=== PATIENT | male | born 1980 | race Caucasian/White ===

== ENCOUNTER 2018-10-23 10:42 | Day surgery (SDC) | payer MEDICAID ==
[~2018-10-23 10:42] MED LIST: CLIN300C85 PO; WARF-55 PO
[2018-10-23] MEDS ORDERED: LIDOcaine 2% 5ml jelly ONE (11:31)
--- NOTE | 2018-10-23 12:30 | NUR ---
Patient ambulated independently from [facility] and was admitted to outpatient wound care for physician visit. Dressings removed, wound cleansed. New Patient assessment completed with review of patient's medical history and current medications. Ema0-Dr. Valenzuela at bedside accompanied by RN. Wound assessed, time-out performed by MD/RN. Wound debrided as detailed in the physician progress/procedure note. Plan of care discussed with patient. Dressings placed per MD orders. Patient instructed on the signs and symptoms of infection and to call the Wound Center if any occur or to go to the ED if we are closed: Increased pain in the wound Increase in drainage from the wound Redness in the skin surrounding the wound Bleeding from the wound Temperature of 101F or greater Patient instructed that the weight of their body puts a large amount of pressure on their wounds. This pressure keeps the new tissue from growing and inhibits new blood vessels from forming. Explained that, if they continue to bear weight on a body part that has a wound, the time it takes to heal the wound increases, the wound may get worse, or the wound may not heal at all. Patient verbalized understanding of all discharge instructions and plan of care. Patient ambulated independently out to [facility] in stable condition with no signs or symptoms of distress at time of discharge. Addendum: 10/23/18 at 1500 by Ne Anand RN Patient arrived and departed via motorized wheelchair; patient did not ambulate.
== END 2018-10-23 12:26 | disposition home or self-care (01) ==
LOC: WOUND CARE 10:42
PROVIDERS: ATTEND Surgery
DX: T87.89 Other complications of amputation stump (principal); L97.512 Non-pressure chronic ulcer of other part of right foot with fat layer exposed; L97.522 Non-pressure chronic ulcer of other part of left foot with fat layer exposed; I11.0 Hypertensive heart disease with heart failure; I50.9 Heart failure, unspecified; I96 Gangrene, not elsewhere classified; F12.10 Cannabis abuse, uncomplicated; F17.210 Nicotine dependence, cigarettes, uncomplicated; F15.10 Other stimulant abuse, uncomplicated; Z79.01 Long term (current) use of anticoagulants; Z86.718 Personal history of other venous thrombosis and embolism; Y83.5 Amputation of limb(s) as the cause of abnormal reaction of the patient, or of later complication, without mention of misadventure at the time of the procedure
CPT/HCPCS: 97597; A6209; A6021; A6206; A6446

== ENCOUNTER 2018-12-15 22:34 | Emergency (ER) | payer MEDICAID ==
[~2018-12-15] VITALS: Ht 185.4 cm; Wt 260.0 kg
[~2018-12-15 22:34] MED LIST changes: -CLIN300C85 PO
[2018-12-15 22:38] VITALS: BP 203/138
--- NOTE | 2018-12-16 00:41 | NUR ---
No response from lobby after 3 attempts to room. Call placed to phone number on file. Message left expressing concern for Pt's well being, and to encourage him to return for eval. Dr Nolasco informed.
== END 2018-12-16 00:45 | disposition left against medical advice (07) ==
LOC: ER 22:34
DX: M79.605 Pain in left leg (principal); Z53.21 Procedure and treatment not carried out due to patient leaving prior to being seen by health care provider

== ENCOUNTER 2019-04-02 21:22 | Emergency (ER) | payer MEDICAID ==
[~2019-04-02] VITALS: Ht 185.4 cm; Wt 113.6 kg
[2019-04-02] MEDS ORDERED: hydrALAZINE 20mg/ml inj. IV ONE (21:30)
[2019-04-02] MEDS ORDERED: LABE100T5 PO (21:51)
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
[2019-04-02 22:30] VITALS: BP 219/137
== END 2019-04-02 22:32 | disposition home or self-care (01) ==
LOC: ER 21:23
DX: I10 Essential (primary) hypertension (principal); F12.90 Cannabis use, unspecified, uncomplicated; F15.90 Other stimulant use, unspecified, uncomplicated; Z91.14 Patient's other noncompliance with medication regimen; Z86.718 Personal history of other venous thrombosis and embolism; Z86.14 Personal history of Methicillin resistant Staphylococcus aureus infection; Z56.0 Unemployment, unspecified; Z79.01 Long term (current) use of anticoagulants; Z79.899 Other long term (current) drug therapy; Z89.612 Acquired absence of left leg above knee; Z89.611 Acquired absence of right leg above knee
CPT/HCPCS: 99284; J0360

== ENCOUNTER 2020-04-06 20:53 | Emergency (ER) | payer MEDICAID ==
[~2020-04-06] VITALS: Ht 185.4 cm; Wt 113.6 kg
[~2020-04-06 20:53] MED LIST changes: +LABE100T5 PO
--- NOTE | 2020-04-06 21:04 | NUR ---
PT REFUSING ANY INTERVENTIONS AT THIS TIME AND AGREES TO STAY TO "SEE A DR REALLY QUICK BUT I WOULD PREFER TO GO HOME."
[2020-04-06 21:22] VITALS: BP 189/129
== END 2020-04-06 21:24 | disposition left against medical advice (07) ==
LOC: ER 20:54
DX: I10 Essential (primary) hypertension (principal); F12.90 Cannabis use, unspecified, uncomplicated; F15.90 Other stimulant use, unspecified, uncomplicated; Z56.0 Unemployment, unspecified; Z86.718 Personal history of other venous thrombosis and embolism; Z86.14 Personal history of Methicillin resistant Staphylococcus aureus infection; Z79.01 Long term (current) use of anticoagulants
CPT/HCPCS: 99283

== ENCOUNTER 2020-09-27 19:37 | Emergency (ER) | payer MEDICAID ==
[~2020-09-27] VITALS: Ht 185.4 cm; Wt 113.6 kg
[2020-09-27 19:42] VITALS: BP_DIAS 100
[2020-09-27] MEDS ORDERED: lisinopril 10 MG tablet PO ONE (19:50)
[2020-09-27] MEDS ORDERED: cloNIDine 0.1 mg tablet PO ONE (19:55)
[2020-09-27 20:14] VITALS: BP_SYST 191
== END 2020-09-27 20:17 ==
LOC: ER 19:37
DX: I10 Essential (primary) hypertension (principal); F15.10 Other stimulant abuse, uncomplicated; F12.90 Cannabis use, unspecified, uncomplicated; Z72.89 Other problems related to lifestyle; Z86.14 Personal history of Methicillin resistant Staphylococcus aureus infection; Z79.01 Long term (current) use of anticoagulants; Z79.899 Other long term (current) drug therapy
CPT/HCPCS: 99283

== ENCOUNTER 2021-02-18 13:51 | Emergency (ER) | payer MEDICAID ==
[~2021-02-18] VITALS: Ht 185.4 cm; Wt 100.0 kg
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
--- NOTE | 2021-02-18 16:40 | NUR ---
Monica Johnson NP aware of BP
[2021-02-18] MEDS ORDERED: cloNIDine 0.1 mg tablet PO ONE (16:45)
[2021-02-18] MEDS ORDERED: oxyCODONE/APAP 5-325mg tablet PO ONE (18:15)
[2021-02-18 18:31] VITALS: BP 219/145
== END 2021-02-18 18:39 | disposition home or self-care (01) ==
LOC: ER 13:51
DX: S02.82XA Fracture of other specified skull and facial bones, left side, initial encounter for closed fracture (principal); S09.93XA Unspecified injury of face, initial encounter; H05.232 Hemorrhage of left orbit; F15.10 Other stimulant abuse, uncomplicated; F12.10 Cannabis abuse, uncomplicated; I10 Essential (primary) hypertension; Y04.0XXA Assault by unarmed brawl or fight, initial encounter; Y93.89 Activity, other specified; Y92.89 Other specified places as the place of occurrence of the external cause; Y99.8 Other external cause status; Z56.0 Unemployment, unspecified; Z79.899 Other long term (current) drug therapy
CPT/HCPCS: 70450; 70486; 99285

== ENCOUNTER 2021-03-09 10:29 | Emergency (ER) | payer MEDICAID ==
[~2021-03-09] VITALS: Ht 185.4 cm; Wt 90.9 kg
[2021-03-09 13:06] VITALS: BP 201/141
== END 2021-03-09 14:43 ==
LOC: ER 10:30
DX: F12.90 Cannabis use, unspecified, uncomplicated (principal); F15.90 Other stimulant use, unspecified, uncomplicated; I10 Essential (primary) hypertension; Z86.14 Personal history of Methicillin resistant Staphylococcus aureus infection; Z79.01 Long term (current) use of anticoagulants; Z79.899 Other long term (current) drug therapy; Z56.0 Unemployment, unspecified; Z72.89 Other problems related to lifestyle; Z86.718 Personal history of other venous thrombosis and embolism
CPT/HCPCS: 99283

== ENCOUNTER 2021-07-09 18:43 | Inpatient (IN) | payer MEDICAID ==
[~2021-07-09] VITALS: Ht 182.9 cm; Wt 100.0 kg
[2021-07-09] MEDS ORDERED: DEXAMETHASONE 6 MG TABLET PO STA (19:10)
[2021-07-09] MEDS ORDERED: iohexol 350MG/ML 100ml bottle IV ONE (19:48)
[2021-07-09 19:49] LABS: BASOPHILS % (AUTO) 0.4 % (0-1); EOSINOPHILS % (AUTO) 0 % (0-6); HEMATOCRIT 53.3 % (42.0-52.0); LYMPHOCYTES # (AUTO) 0.8 X10'3 (1.1-4.8); LYMPHOCYTES % (AUTO) 6.8 % (21-51); MEAN CORPUSCULAR HEMOGLOBIN 33.5 PG (27.0-31.0); MEAN CORPUSCULAR HGB CONC 34.3 g/dL (33.0-36.5); MEAN CORPUSCULAR VOLUME 97.8 FL (78-98); MEAN PLATELET VOLUME 8.6 FL (7.4-10.4); MONOCYTES # (AUTO) 1.6 X10'3 (0-0.9); MONOCYTES % (AUTO) 13.3 % (2-12); NEUTROPHILS # (AUTO) 9.6 X10'3 (1.8-7.7); NEUTROPHILS % (AUTO) 79.5 % (42-75); PLATELET COUNT 125 X10'3 (140-440); RED BLOOD COUNT 5.45 X10'6 (4.70-6.10); RED CELL DISTRIBUTION WIDTH 13.5 % (11.5-14.5); WHITE BLOOD COUNT 12.1 X10'3 (4.5-11.0)
[2021-07-09 19:54] LABS: HEMOGLOBIN 18.3 g/dl (14.0-17.9)
[2021-07-09 20:00] LABS: D-DIMER 2.09 MG/L FEU (0-0.50)
[2021-07-09 20:07] LABS: ALANINE AMINOTRANSFERASE 21 U/L (12-78); ALBUMIN 3.1 G/DL (3.4-5.0); ALBUMIN/GLOBULIN RATIO 0.8 (1.1-1.5); ALKALINE PHOSPHATASE 149 IU/L (46-116); ANION GAP 14 (8-16); ASPARTATE AMINO TRANSFERASE 38 U/L (10-37); BILIRUBIN,TOTAL 1.2 MG/DL (0.1-1.0); BLOOD UREA NITROGEN 17 MG/DL (7-18); BUN/CREATININE RATIO 13.2 (5.4-32.0); CHLORIDE 97 MMOL/L (99-107); CREATININE 1.29 MG/DL (0.60-1.10); GLUCOSE 110 MG/DL (70-104); POTASSIUM 3.6 MMOL/L (3.5-5.1); SODIUM 134 MMOL/L (135-145); TOTAL PROTEIN 7.2 G/DL (6.4-8.2); eGFR 62 ML/MIN
[2021-07-09 20:10] LABS: URINE AMPHETAMINE SCREEN POSITIVE (Neg); URINE BARBITUATE SCREEN NEGATIVE (Neg); URINE BENZODIAZEPINES SCREEN NEGATIVE (Neg); URINE CANNABINOID SCREEN POSITIVE (Neg); URINE COCAINE SCREEN NEGATIVE (Neg); URINE METHADONE SCREEN NEGATIVE (Neg); URINE OPIATE SCREEN POSITIVE (Neg); URINE PHENCYCLIDINE SCREEN NEGATIVE (Neg)
[2021-07-09 20:13] LABS: C-REACTIVE PROTEIN 8.76 MG/DL (0.0-0.5); LACTATE DEHYDROGENASE 328 U/L (85-227)
[2021-07-09] MEDS ORDERED: furosemide 10 MG/1 ML 10ml inj IV ONE (20:50)
[2021-07-09] MEDS ORDERED: CefTRIAXone/D5W-Rocephin 1gm 50 ML IV ONE (21:40)
[2021-07-09] MEDS ORDERED: azithromycin/NS 500mg/250ml 250 ML IV ONE (21:40)
--- NOTE | 2021-07-09 23:21 | NUR ---
Patient fitted with a condom catheter and drainage bag.
[2021-07-10] MEDS ORDERED: ondansetron/PF 4mg/2ml inj IV PRN (00:20)
[2021-07-10] MEDS ORDERED: mag hydrox/Alum hydrox/simeth 30ml oral suspension PO PRN (00:20)
[2021-07-10] MEDS ORDERED: acetaminophen 650mg rectal suppository RC PRN (00:20)
[2021-07-10] MEDS ORDERED: bisacodyl 10mg suppository rectal RC PRN (00:20)
[2021-07-10] MEDS: dextrose 5%-1/2 normal saline 1,000 ML IV SCH ×2 (00:20→10:34)
[2021-07-10] MEDS ORDERED: diphenhydrAMINE 50 mg/ml inj IV PRN (00:20)
[2021-07-10] MEDS ORDERED: magnesium hydroxide 30ml (MOM) UD suspension PO PRN (00:20)
[2021-07-10] MEDS ORDERED: HYDROcodone/acetaminophen 5mg/325mg tablet PO PRN (00:20)
[2021-07-10] MEDS ORDERED: morphine 2 MG/ML inj. syringe IV PRN ×2 (00:20)
[2021-07-10] MEDS ORDERED: diphenhydrAMINE 25mg capsule PO PRN (00:20)
[2021-07-10] MEDS ORDERED: HYDROcodone/acetaminophen 10/325mg tab PO PRN (00:20)
[2021-07-10] MEDS ORDERED: acetaminophen 325mg tablet PO PRN (00:20)
[2021-07-10] MEDS ORDERED: ondansetron 4mg rapidly disintigrating tab PO PRN (00:20)
[2021-07-10] MEDS ORDERED: ALBUTEROL INHALER 1 PUFF/90 MCG INHALER IH PRN (00:25)
[2021-07-10] MEDS ORDERED: hydrALAZINE 20mg/ml inj. IV PRN (00:25)
[2021-07-10 01:05] LABS: CLARITY,URINE CLEAR (Clear); COLOR,URINE DARK YELLOW (Yellow); GLUCOSE, URINE NEGATIVE (Neg); KETONES,URINE NEGATIVE (Neg); LEUKOCYTE ESTERASE ,URINE NEGATIVE (Neg); NITRITES, URINE NEGATIVE (Neg); OCCULT BLOOD,URINE MODERATE (Neg); PROTEIN,URINE >=300 mg/dl (Neg); UA COLLECTION TYPE NON-SPECIFIED; UROBILINOGEN,URINE >=8.0 E.U/dL (0.2-1.0)
[2021-07-10 01:19] LABS: BACTERIA,URINE FEW /HPF (Neg); SQUAMOUS EPITHELIAL CELL,UR FEW /LPF (FEW); WBC,URINE 0-4 /HPF (0-4)
[2021-07-10 01:20] LABS: RBC,URINE 0-2 /HPF (0-2)
[2021-07-10 01:21] LABS: HYALINE CASTS 0-3 /LPF (NEGATIVE)
--- NOTE | 2021-07-10 02:40 | NUR ---
Patient O2 sat consistently below 85% on 6L NC. Patient placed on non-rebreather at 10 L. O2 sat at 91%.
[2021-07-10] MEDS ORDERED: furosemide 10 MG/1 ML 10ml inj IV ONE (07:10)
[2021-07-10] MEDS ORDERED: pantoprazole 40mg Tablet.DR PO SCH (07:30)
[2021-07-10] MEDS ORDERED: heparin, porcine 5000 units/ml vial SQ SCH (08:00)
[2021-07-10] MEDS: docusate sod 100mg capsule PO SCH ×2 (08:00→20:09)
[2021-07-10] MEDS: LORazepam 2 mg/ml vial IV SCH ×3 (08:16→23:54)
[2021-07-10] MEDS: pantoprazole 40mg Tablet.DR PO SCH (08:16)
[2021-07-10] MEDS: CefTRIAXone/D5W-Rocephin 1gm 50 ML IV SCH (08:16)
[2021-07-10] MEDS: dexamethasone 4mg/ml inj IV SCH ×2 (08:16→20:10)
[2021-07-10] MEDS: losartan 50mg tablet PO SCH (08:17)
[2021-07-10] MEDS: aspirin 81mg, enteric-coated 1 TAB TABLET.DR PO SCH (08:17)
[2021-07-10] MEDS: atorvastatin 20mg tablet PO SCH (08:17)
[2021-07-10] MEDS: azithromycin/NS 500mg/250ml 250 ML IV SCH (08:17)
[2021-07-10] MEDS: nitroGLYCERIN 0.1mg/hour patch TD SCH (09:30)
[2021-07-10] MEDS ORDERED: NO HOME MEDS PO (12:18)
[2021-07-10 12:49] LABS: PARTIAL THROMBOPLASTIN TIME 34 SECONDS (22-32)
[2021-07-10 12:50] LABS: HEMOGLOBIN A1C 6.2 % (4.5-6.2)
--- NOTE | 2021-07-10 13:28 | NUR ---
Dr. Carmen paged re; pt o2 desaturation
--- NOTE | 2021-07-10 13:37 | NUR ---
Dr. Coyle at bedside
[2021-07-10 13:40] LABS: CREATINE KINASE 262 U/L (39-308); LIPASE < 50 U/L (73-393); MAGNESIUM 1.8 MG/DL (1.5-2.4); PHOSPHORUS 2.7 MG/DL (2.3-4.5)
--- NOTE | 2021-07-10 15:20 | NUR ---
Dr. Coyle notified of positive blood CX
[2021-07-10] MEDS ORDERED: REMDESIVIR INJ 100 MG in normal saline 100ml IV soln 80 ML IV SCH (15:50)
[2021-07-10] MEDS ORDERED: vancomycin/NS 1 GM ADD-VANTAGE 250 ML X 1 DOSE IV ONE ×2 (16:15→17:45)
[2021-07-10] MEDS ORDERED: REMDESIVIR 200 MG in NS 100ml IVPB Loading dose IV ONE (16:15)
--- NOTE | 2021-07-10 17:48 | NUR ---
Pt non-compliant with o2 therapy. Constantly reminded to keep NRB o2 therapy on face.
[2021-07-10] MEDS ORDERED: vancomycin/NS 1 GM ADD-VANTAGE 250 ML IV SCH (20:00)
[2021-07-10] MEDS: furosemide 10 MG/1 ML 10ml inj IV SCH (20:05)
[2021-07-10] MEDS: lactobacillus rhamnosus 10,000 MMU CELLS/CAPSULE PO SCH (20:09)
[2021-07-10] MEDS: carvedilol 6.25mg tablet PO SCH (20:09)
[2021-07-10] MEDS: apixaban 5mg tablet PO SCH (20:10)
[2021-07-10] MEDS ORDERED: LIDOcaine 2% 10ml TOPICAL JELLY (Urojet) TP ONE (20:25)
[2021-07-10 20:54] LABS: BASOPHILS % (AUTO) 0.2 % (0-1); EOSINOPHILS % (AUTO) 0 % (0-6); HEMATOCRIT 57.1 % (42.0-52.0); LYMPHOCYTES # (AUTO) 1.2 X10'3 (1.1-4.8); LYMPHOCYTES % (AUTO) 6.7 % (21-51); MEAN CORPUSCULAR HEMOGLOBIN 33.5 PG (27.0-31.0); MEAN CORPUSCULAR HGB CONC 34.6 g/dL (33.0-36.5); MEAN CORPUSCULAR VOLUME 96.9 FL (78-98); MEAN PLATELET VOLUME 9.1 FL (7.4-10.4); MONOCYTES # (AUTO) 0.8 X10'3 (0-0.9); MONOCYTES % (AUTO) 4.7 % (2-12); NEUTROPHILS # (AUTO) 15.7 X10'3 (1.8-7.7); NEUTROPHILS % (AUTO) 88.4 % (42-75); PLATELET COUNT 112 X10'3 (140-440); RED CELL DISTRIBUTION WIDTH 13.7 % (11.5-14.5); WHITE BLOOD COUNT 17.8 X10'3 (4.5-11.0)
[2021-07-10 20:59] LABS: HEMOGLOBIN 19.8 g/dl (14.0-17.9)
[2021-07-10] MEDS ORDERED: temazepam 15mg capsule PO PRN (21:00)
[2021-07-10 21:10] LABS: ABG BASE EXCESS 2.6 mmol/L (-2.0-2.0); ABG HCO3 22.4 mmol/L (22.0-26.0); ABG OXYGEN SATURATION 95.5 % (94-97); ABG PCO2 (T) 25.2 mmHg (35.0-48.0); ABG PO2 (T) 74.9 mmHg (75.0-100.0); ALLEN'S TEST POSITIVE; FCOHb 0.3 % (0.0-3.9); FMetHb 0.3 % (0.0-1.5); FO2Hb 94.9 % (94-97); RESPIRATORY RATE 14 b/min; TOTAL HEMOGLOBIN 20.4 G/dl (14.0-18.0)
[2021-07-10 22:46] LABS: CHLORIDE 102 MMOL/L (99-107); GLUCOSE 146 MG/DL (70-104); POTASSIUM 3.2 MMOL/L (3.5-5.1); SODIUM 138 MMOL/L (135-145)
[2021-07-10 22:47] LABS: ANION GAP 10 (8-16); BLOOD UREA NITROGEN 21 MG/DL (7-18); TOTAL CARBON DIOXIDE 25.7 MMOL/L (24-32)
[2021-07-10 22:48] LABS: BUN/CREATININE RATIO 18.4 (5.4-32.0); CREATININE 1.14 MG/DL (0.60-1.10); eGFR 72 ML/MIN
[2021-07-10 22:54] LABS: BILIRUBIN,TOTAL 1.4 MG/DL (0.1-1.0); CALCIUM 8.3 MG/DL (8.5-10.1)
[2021-07-10 22:56] LABS: CREATINE KINASE 363 U/L (39-308)
[2021-07-10 22:57] LABS: ALANINE AMINOTRANSFERASE 18 U/L (12-78); ALBUMIN 2.6 G/DL (3.4-5.0); ALBUMIN/GLOBULIN RATIO 0.7 (1.1-1.5); ALKALINE PHOSPHATASE 116 IU/L (46-116); ASPARTATE AMINO TRANSFERASE 40 U/L (10-37); TOTAL PROTEIN 6.5 G/DL (6.4-8.2); TROPONIN I 0.33 NG/ML (0.0-0.05)
[2021-07-11 00:01] LABS: ANISOCYTOSIS FEW; PLATELET ESTIMATE DECREASED; TOTAL CELLS COUNTED 100; TOXIC GRANULATION 1+; TOXIC VACUOLATION 1+
[2021-07-11 03:45] LABS: ALANINE AMINOTRANSFERASE 16 U/L (12-78); ALBUMIN 2.8 G/DL (3.4-5.0); ALBUMIN/GLOBULIN RATIO 0.6 (1.1-1.5); ALKALINE PHOSPHATASE 120 IU/L (46-116); ANION GAP 10 (8-16); ASPARTATE AMINO TRANSFERASE 53 U/L (10-37); BILIRUBIN,TOTAL 1.6 MG/DL (0.1-1.0); BLOOD UREA NITROGEN 24 MG/DL (7-18); CALCIUM 8.7 MG/DL (8.5-10.1); CHLORIDE 99 MMOL/L (99-107); CHOL/HDL RATIO 6.3 (0.00-4.99); CHOLESTEROL 95 MG/DL (0-200); CREATININE 1.26 MG/DL (0.60-1.10); GLUCOSE 104 MG/DL (70-104); HDL CHOLESTEROL 15 MG/DL (35-60); LDL CHOLESTEROL 57 MG/DL (50-100); SODIUM 139 MMOL/L (135-145); TOTAL CARBON DIOXIDE 29.7 MMOL/L (24-32); TOTAL PROTEIN 7.3 G/DL (6.4-8.2); TRIGLYCERIDES 113 MG/DL (20-135); eGFR 64 ML/MIN
[2021-07-11 03:50] LABS: POTASSIUM 3.2 MMOL/L (3.5-5.1)
[2021-07-11] MEDS: vancomycin/NS 1 GM ADD-VANTAGE 250 ML IV SCH ×2 (04:00→18:09)
--- NOTE | 2021-07-11 04:35 | NUR ---
Pt was given vancomycin at 2300, due to only one IV working line. This RN held the 400am dose. Called pharmacy to retime medication.
--- NOTE | 2021-07-11 07:10 | NUR ---
pt not keeping bipap on. 83% ra. bipap applied 02 sat 92-94%.
--- NOTE | 2021-07-11 07:24 | NUR ---
report called to dung
[2021-07-11 07:29] LABS: BASOPHILS # (AUTO) 0.1 X10'3 (0-0.2); BASOPHILS % (AUTO) 0.4 % (0-1); EOSINOPHILS % (AUTO) 0 % (0-6); HEMATOCRIT 53.2 % (42.0-52.0); LYMPHOCYTES # (AUTO) 0.7 X10'3 (1.1-4.8); LYMPHOCYTES % (AUTO) 4.4 % (21-51); MEAN CORPUSCULAR HEMOGLOBIN 33.2 PG (27.0-31.0); MEAN CORPUSCULAR HGB CONC 34.1 g/dL (33.0-36.5); MEAN CORPUSCULAR VOLUME 97.3 FL (78-98); MEAN PLATELET VOLUME 9.5 FL (7.4-10.4); MONOCYTES # (AUTO) 0.6 X10'3 (0-0.9); MONOCYTES % (AUTO) 3.7 % (2-12); NEUTROPHILS # (AUTO) 14.6 X10'3 (1.8-7.7); NEUTROPHILS % (AUTO) 91.5 % (42-75); PLATELET COUNT 109 X10'3 (140-440); RED BLOOD COUNT 5.47 X10'6 (4.70-6.10)
[2021-07-11 07:46] LABS: HEMOGLOBIN 18.2 g/dl (14.0-17.9)
--- NOTE | 2021-07-11 07:48 | NUR ---
PAGER ID: [phone] MESSAGE: [id number] JAMISON SYKES [facility] 18.2 [id number] DION
[2021-07-11] MEDS: furosemide 10 MG/1 ML 10ml inj IV SCH ×3 (08:00→21:25)
[2021-07-11] MEDS: docusate sod 100mg capsule PO SCH ×2 (08:00→21:25)
[2021-07-11] MEDS ORDERED: REMDESIVIR 100 MG in NS 100ml IVPB IV SCH (08:00)
[2021-07-11 10:20] VITALS: BP 142/99
[2021-07-11] MEDS: dexamethasone 4mg/ml inj IV SCH (10:22)
[2021-07-11] MEDS: carvedilol 6.25mg tablet PO SCH ×2 (10:22→21:25)
[2021-07-11] MEDS: lactobacillus rhamnosus 10,000 MMU CELLS/CAPSULE PO SCH ×2 (10:22→21:26)
[2021-07-11] MEDS: LORazepam 2 mg/ml vial IV SCH (10:22)
[2021-07-11] MEDS: apixaban 5mg tablet PO SCH ×2 (10:22→21:26)
[2021-07-11] MEDS: atorvastatin 20mg tablet PO SCH (10:22)
[2021-07-11] MEDS: aspirin 81mg, enteric-coated 1 TAB TABLET.DR PO SCH (10:22)
[2021-07-11] MEDS: losartan 50mg tablet PO SCH (10:23)
[2021-07-11] MEDS: pantoprazole 40mg Tablet.DR PO SCH (10:23)
[2021-07-11] MEDS: nitroGLYCERIN 0.1mg/hour patch TD SCH (10:24)
--- NOTE | 2021-07-11 12:00 | NUR ---
Patient had been refusing lasix secondary to difficulty urinating. Dr Jonna valdes's bay with [facility] for placement
--- NOTE | 2021-07-11 12:48 | NUR ---
PAGER ID: [phone] MESSAGE: [id number] See Louis+ 3.2, Would you like protocol or one time order? DION 3052
[2021-07-11] MEDS ORDERED: potassium Cl 40MEQ/1/2NS 520ml 520 ML IV PRN ×2 (12:50)
[2021-07-11] MEDS ORDERED: potassium Cl 20 mEq SR tablet PO PRN (12:50)
[2021-07-11 13:53] VITALS: BP 135/85
[2021-07-11] MEDS: CefTRIAXone/D5W-Rocephin 1gm 50 ML IV SCH (15:36)
--- NOTE | 2021-07-11 16:57 | NUR ---
Patient c/o bladder pain, bladder scan for 289cc. Call for slightly larger catheter. Patient has an exceptionally small urethra.
[2021-07-11] MEDS: azithromycin/NS 500mg/250ml 250 ML IV SCH (17:16)
[2021-07-11 18:00] VITALS: BP 139/106
--- NOTE | 2021-07-11 18:20 | NUR ---
Patient in room [facility]THO 4022. I have received report from ALEKSANDRA Brooks and had the opportunity to ask questions and assume patient care.
[2021-07-11] MEDS: potassium Cl 20 mEq SR tablet PO PRN (19:08)
[2021-07-11] MEDS ORDERED: K and/or MAG REPLACEMENT MC SCH (20:00)
[2021-07-11 22:00] VITALS: BP 163/113
[2021-07-12] MEDS: LORazepam 2 mg/ml vial IV SCH
[2021-07-12] MEDS: potassium Cl 20 mEq SR tablet PO PRN ×2 (00:06→05:38)
--- NOTE | 2021-07-12 02:00 | NUR ---
Patient refused v/S to be taken, he was sleeping.
[2021-07-12] MEDS ORDERED: VANCOMYCIN LEVEL IV ONE (03:30)
[2021-07-12] MEDS: vancomycin/NS 1 GM ADD-VANTAGE 250 ML IV SCH (04:57)
[2021-07-12 05:07] LABS: BASOPHILS % (AUTO) 0.3 % (0-1); EOSINOPHILS % (AUTO) 0 % (0-6); HEMATOCRIT 46.5 % (42.0-52.0); HEMOGLOBIN 16.2 g/dl (14.0-17.9); LYMPHOCYTES # (AUTO) 0.7 X10'3 (1.1-4.8); LYMPHOCYTES % (AUTO) 5.2 % (21-51); MEAN CORPUSCULAR HEMOGLOBIN 33.1 PG (27.0-31.0); MEAN CORPUSCULAR HGB CONC 34.9 g/dL (33.0-36.5); MEAN CORPUSCULAR VOLUME 94.7 FL (78-98); MEAN PLATELET VOLUME 9.9 FL (7.4-10.4); MONOCYTES # (AUTO) 0.5 X10'3 (0-0.9); MONOCYTES % (AUTO) 3.7 % (2-12); NEUTROPHILS # (AUTO) 12.5 X10'3 (1.8-7.7); NEUTROPHILS % (AUTO) 90.8 % (42-75); PLATELET COUNT 101 X10'3 (140-440); RED BLOOD COUNT 4.91 X10'6 (4.70-6.10); RED CELL DISTRIBUTION WIDTH 13.4 % (11.5-14.5); WHITE BLOOD COUNT 13.8 X10'3 (4.5-11.0)
[2021-07-12 05:14] LABS: D-DIMER 1.02 MG/L FEU (0-0.50)
[2021-07-12 05:18] LABS: ALANINE AMINOTRANSFERASE 20 U/L (12-78); ALBUMIN 2.5 G/DL (3.4-5.0); ALBUMIN/GLOBULIN RATIO 0.7 (1.1-1.5); ALKALINE PHOSPHATASE 118 IU/L (46-116); ANION GAP 8 (8-16); ASPARTATE AMINO TRANSFERASE 45 U/L (10-37); BILIRUBIN,TOTAL 1.3 MG/DL (0.1-1.0); BLOOD UREA NITROGEN 29 MG/DL (7-18); BUN/CREATININE RATIO 22.3 (5.4-32.0); C-REACTIVE PROTEIN 12.15 MG/DL (0.0-0.5); CALCIUM 8.2 MG/DL (8.5-10.1); CHLORIDE 99 MMOL/L (99-107); GLUCOSE 123 MG/DL (70-104); POTASSIUM 4.1 MMOL/L (3.5-5.1); SODIUM 134 MMOL/L (135-145); TOTAL CARBON DIOXIDE 26.7 MMOL/L (24-32); TOTAL PROTEIN 6.2 G/DL (6.4-8.2); VANCOMYCIN,TROUGH 3.3 UG/ML (6.0-14.0); eGFR 62 ML/MIN
[2021-07-12 06:00] VITALS: BP 164/95
--- NOTE | 2021-07-12 06:17 | NUR ---
Problems reprioritized. Patient report given, questions answered & plan of care reviewed with ALEKSANDRA Brooks.
[2021-07-12] MEDS ORDERED: dexamethasone 4mg/ml inj IV SCH (08:00)
[2021-07-12] MEDS ORDERED: NS IV SCH ×2 (08:00)
[2021-07-12] MEDS ORDERED: DEXAMETHASONE IV SCH ×2 (08:00)
--- NOTE | 2021-07-12 09:15 | NUR ---
Patient insists on leaving AMA. he pulled his own iv earlier, took his telemetry off again. He insists his girlfriend will be here any minute to pick him up and he needs to be outside. Transfer via w/c to bench outside front door of hospital entrance.
[2021-07-12] MEDS ORDERED: vancomycin/NS 1 GM ADD-VANTAGE 250 ML IV SCH (12:00)
[2021-07-13] MEDS ORDERED: VANCOMYCIN LEVEL IV ONE (03:30)
== END 2021-07-12 09:15 | disposition left against medical advice (07) | DRG 137 ==
LOC: ER 18:44 → ED HOLD 07-10 00:23 → EDBEDREQSVC 07-11 05:31 → ORTHO 4S 07-11 07:30
PROVIDERS: ADMIT Family Medicine; ATTEND Internal Medicine
PROC: B32T1ZZ Computerized Tomography (CT Scan) of Left Pulmonary Artery using Low Osmolar Contrast (ICD-10-PCS; 2021-07-09)
PROC: B3201ZZ Computerized Tomography (CT Scan) of Thoracic Aorta using Low Osmolar Contrast (ICD-10-PCS; 2021-07-09)
PROC: B32S1ZZ Computerized Tomography (CT Scan) of Right Pulmonary Artery using Low Osmolar Contrast (ICD-10-PCS; 2021-07-09)
PROC: 5A09357 Assistance with Respiratory Ventilation, Less than 24 Consecutive Hours, Continuous Positive Airway Pressure (ICD-10-PCS; principal; 2021-07-10)
PROC: XW033E5 Introduction of Remdesivir Anti-infective into Peripheral Vein, Percutaneous Approach, New Technology Group 5 (ICD-10-PCS; 2021-07-10)
PROC: 5A0935A Assistance with Respiratory Ventilation, Less than 24 Consecutive Hours, High Flow/Velocity Cannula (ICD-10-PCS; 2021-07-11)
DX: U07.1 COVID-19 (principal); J96.01 Acute respiratory failure with hypoxia; J12.82 Pneumonia due to coronavirus disease 2019; I50.33 Acute on chronic diastolic (congestive) heart failure; I21.A1 Myocardial infarction type 2; D69.6 Thrombocytopenia, unspecified; I27.21 Secondary pulmonary arterial hypertension; J15.9 Unspecified bacterial pneumonia; I27.81 Cor pulmonale (chronic); I42.7 Cardiomyopathy due to drug and external agent; D75.1 Secondary polycythemia; F17.210 Nicotine dependence, cigarettes, uncomplicated; Z53.29 Procedure and treatment not carried out because of patient's decision for other reasons; F12.10 Cannabis abuse, uncomplicated; I16.1 Hypertensive emergency; F15.129 Other stimulant abuse with intoxication, unspecified; I11.0 Hypertensive heart disease with heart failure; Z86.718 Personal history of other venous thrombosis and embolism; Z86.14 Personal history of Methicillin resistant Staphylococcus aureus infection; Z59.00 Homelessness unspecified
CPT/HCPCS: 36415; 36600; 71045; 71275; 80053; 80061; 80202; 80305; 81001; 82550; 82803; 83036; 83605; 83615; 83690; 83735; 83880; 84100; 84145; 84484; 85007; 85018; 85025; 85379; 85610; 85730; 86140; 87040; 87077; 87186; 87635; 93005; 93308; 94660; 94760; 99285; C9803; G0378; J0456; J0696; J1100; J1644; J1940; J2060; J3370; J8540; Q9967

== ENCOUNTER 2022-05-06 02:35 | Emergency (ER) | payer MEDICAID ==
[~2022-05-06] VITALS: Ht 185.4 cm; Wt 100.0 kg
[~2022-05-06 02:35] MED LIST changes: -LABE100T5 PO; +NO HOME MEDS PO; -WARF-55 PO
[2022-05-06 03:00] VITALS: BP_DIAS 125
[2022-05-06] MEDS ORDERED: lisinopril 10 MG tablet PO ONE (03:20)
[2022-05-06] MEDS ORDERED: DOXYCYCLINE 100MG CAPSULE PO STA (03:20)
[2022-05-06 03:33] VITALS: BP_SYST 179
[2022-05-06] MEDS ORDERED: DOXY-1 PO (04:10)
== END 2022-05-06 04:23 | disposition home or self-care (01) ==
LOC: ER 02:35
DX: S80.922A Unspecified superficial injury of left lower leg, initial encounter (principal); I11.0 Hypertensive heart disease with heart failure; I50.9 Heart failure, unspecified; F12.90 Cannabis use, unspecified, uncomplicated; F15.20 Other stimulant dependence, uncomplicated; Z56.0 Unemployment, unspecified; X58.XXXA Exposure to other specified factors, initial encounter; Y93.89 Activity, other specified; Y92.89 Other specified places as the place of occurrence of the external cause; Y99.8 Other external cause status
CPT/HCPCS: 99284